=== PATIENT | male | born 1955 | race Asian ===

== ENCOUNTER 2021-07-21 07:30 | Emergency (ER) | payer OTHER, MEDICARE ==
[~2021-07-21] VITALS: Ht 162.6 cm; Wt 110.6 kg
[2021-07-21] MEDS ORDERED: METFORMIN HCL500 MG PO (08:01)
== END 2021-07-21 09:00 | disposition home or self-care (01) ==
LOC: ED 07:30
PROC: 0HQFXZZ Repair Right Hand Skin, External Approach (ICD-10-PCS; principal; 2021-07-21)
DX: S61.411A Laceration without foreign body of right hand, initial encounter (principal); S00.81XA Abrasion of other part of head, initial encounter; I10 Essential (primary) hypertension; E11.9 Type 2 diabetes mellitus without complications; E78.5 Hyperlipidemia, unspecified; J45.909 Unspecified asthma, uncomplicated; Z23 Encounter for immunization; Z79.82 Long term (current) use of aspirin; Z79.84 Long term (current) use of oral hypoglycemic drugs; W18.30XA Fall on same level, unspecified, initial encounter
CPT/HCPCS: 12004; 90471; 90715; 99282-25